=== PATIENT | female | born 1970 | race Caucasian/White ===

== ENCOUNTER 2019-09-04 | Emergency (ER) | payer BC ==
[~2019-09-04] MED LIST: ADVAIR DISKU IN; AF-MIGRAIN1 PO; ALEVE220 M2 PO; AMITRIPTYLIN50 MG OR; AMOXICILLIN/CL875 MG OR; AMOXICILLIN/CL875 MG PO; BACLOFEN20 MG PO; BACTRIM DS1 TAB PO; BUPAP1 TAB OR; CIPRO XR500 M2; CIPROFLOXACN500 MG PO; CITALOPRAM20 MG PO; CYMBALTA30 MG PO; DEPO-MEDROL80 MG/ML IM; DIAZEPAM; DIFLUCAN150 MG PO; DUONEB IN; DURADRIN; FLONASE NASAL50 MCG; LORTAB5 PO; LYRICA75 MG OR; MEDDOSEPAK PO; NAPROSYN500 MG PO; NASONEX50 MCG/AC NAB; NEXIUM20 MG OR; OMACOR1 GM OR; PREDNISONE10 MG PO; PRILOSEC40 MG PO; PROVENTIL HFA IN; ROBITUSSIN AC10 ML PO; SILVADENE1 % EX; SINEX; SINGULAIR PO; SKELAXIN800 MG OR; SYNTHROID25 MCG PO; TOPAMAX200 MG OR; TRAMADOL HCL50 MG PO; TRAZODONE100 MG OR; UNISOM SLEEP50 MG PO; ZITHROMAX500 MG PO; [UNRECOGNIZED DRUG - OTHER] OR
[2019-09-04 00:58] LABS: HEMATOCRIT 38.8 % (37.0-47.0); HEMOGLOBIN 12.5 g/dl (12.0-16.0); IMMATURE GRANULOCYTES 0.6 % (0.0-5.0); MEAN CELL VOLUME 86.4 fL CALC (80.0-100.0); MEAN CORPUSCULAR HGB 27.8 pG CALC (26.0-32.0); MEAN CORPUSCULAR HGB CONC 32.2 g/dL CAL (32.0-36.0); NEUT# 8.75 thou/uL (2.00-7.15); RED BLOOD COUNT 4.49 mill/uL (4.20-5.60); RED CELL DISTRI WIDTH 13.4 % (11.5-15.5)
[2019-09-04 01:11] LABS: BUN 13 mg/dL (7-17); BUN/CREATININE RATIO 24 (12-20 (CALC)); CARBON DIOXIDE 22 mmol/l (22-30); CHLORIDE 105 mmol/l (95-108); CREATININE 0.5 mg/dL (0.5-1.0); GFR > 60 ML/MIN (>=60 (CALC)); GFR FOR AFR.AMER. > 60 ML/MIN (>=60 (CALC)); SODIUM 137 mmol/l (137-146)
[2019-09-04 01:12] LABS: ALKALINE PHOSPHATASE 87 u/l (38-126); AMYLASE 44 u/l (30-110); ANION GAP 15 (6-22 (CALC)); BILIRUBIN, TOTAL 0.2 mg/dL (0.0-1.4); LIPASE 106 u/l (23-300); SGOT/AST 16 u/l (14-36); TOTAL PROTEIN 7.2 g/dL (6.3-8.2)
[2019-09-04] MEDS ORDERED: PREVACID30 M3 PO (03:08)
[2019-09-04] MEDS ORDERED: ULTRAM50 M1 PO (03:08)
[2019-09-04] MEDS ORDERED: ONDANSETRON4 MG PO (03:08)
== END 2019-09-04 03:40 | disposition home or self-care (01) | DRG 446 ==
PROVIDERS: Emergency Medicine
DX: K80.20 Calculus of gallbladder without cholecystitis without obstruction (principal); E03.9 Hypothyroidism, unspecified
CPT/HCPCS: Q9967